=== PATIENT | male | born 1965 | race Caucasian/White ===

== ENCOUNTER 2018-02-24 07:07 | Emergency (ER) | payer SELFPAY ==
[~2018-02-24] VITALS: Ht 177.8 cm; Wt 100.0 kg
[2018-02-24 07:09] VITALS: BP 170/98; PULSE 128; RESP 22; TEMP 98; O2SAT 100
[2018-02-24] MEDS ORDERED: SODIUM CHLORIDE 0.9% FLUSH 10 ML FLUSH IVF PRN (07:15)
[2018-02-24 07:19] VITALS: BP_SYST 156; BP_SYST 170; BP_DIAS 93; BP_DIAS 98; O2SAT 100
[2018-02-24 07:21] VITALS: BP 156/93; PULSE 143; RESP 15; O2SAT 100
--- NOTE | 2018-02-24 07:25 | PD ---
HPI Chief Complaint: Cardiac Complaint Time Seen by Provider: 07:13 Travel History International Travel<30 days: No Contact w/Intl Traveler<30days: No Traveled to known affect area: No History of Present Illness HPI 52-year-old male states this morning he woke up feeling palpitations. He states he has never had A. fib before but he has had intermittent episodes of these palpitations. He states since he was here he had a Holter monitor that did not show any abnormal rhythm. He states he took 1 of his 's anxiety pills but it did not help. He denies any pain, fever, shortness of breath or any other concurrent complaints at this time. Quality is palpitations. Severity here is in the 150s. He denies specific modifying factors other than feels worse when he moves around. PFSH Past Medical History Medical History: Denies Significant Hx Tetanus Vaccination: > 5 Years Influenza Vaccination: No Past Surgical History Surgical History: No Previous Surgery Social History Alcohol Use: No Tobacco Use: No Substance Use: No Allergies-Medications (Allergen,Severity, Reaction): Coded Allergies: No Known Allergies (Verified Allergy, Unknown, 02/24/18) Reported Meds & Prescriptions Reported Meds & Active Scripts Active Cardizem (Diltiazem HCl) 60 Mg Tab 60 Mg PO QID 14 Days Review of Systems Except as stated in HPI: all other systems reviewed are Neg Physical Exam Narrative GENERAL: 52-year-old male in no apparent distress, anxious SKIN: Focused skin assessment warm/dry. HEAD: Atraumatic. Normocephalic. EYES: Pupils equal and round. No scleral icterus. No injection or drainage. ENT: No nasal bleeding or discharge. Mucous membranes pink and moist. NECK: Trachea midline. No JVD. CARDIOVASCULAR: irregular rate and rhythm. No murmur appreciated. RESPIRATORY: No accessory muscle use. Clear to auscultation. Breath sounds equal bilaterally. GASTROINTESTINAL: Abdomen soft, non-tender, nondistended. Hepatic and splenic margins not palpable. MUSCULOSKELETAL: No obvious deformities. No clubbing. No cyanosis. NEUROLOGICAL: Awake and alert. No obvious cranial nerve deficits. Motor grossly within normal limits. Normal speech. Data Data Last Documented VS Vital Signs Date Time Temp Pulse Resp B/P (MAP) Pulse Ox O2 Delivery O2 Flow Rate FiO2 02/24/18 09:30 124 16 155/74 (101) 97 02/24/18 07:21 Room Air 02/24/18 07:09 98.0 Orders Orders Electrocardiogram (02/24/18 07:13) B-Type Natriuretic Peptide (02/24/18 07:13) Ckmb (Isoenzyme) Profile (02/24/18 07:13) Complete Blood Count With Diff (02/24/18 07:13) Comprehensive Metabolic Panel (02/24/18 07:13) Magnesium (Mg) (02/24/18 07:13) Prothrombin Time / Inr (Pt) (02/24/18 07:13) Act Partial Throm Time (Ptt) (02/24/18 07:13) Troponin I (02/24/18 07:13) Chest, Single Ap (02/24/18 07:13) Ecg Monitoring (02/24/18 07:13) Bilateral Bp Monitoring (02/24/18 07:13) Iv Access Insert/Monitor (02/24/18 07:13) Oximetry (02/24/18 07:13) Sodium Chloride 0.9% Flush (Ns Flush) (02/24/18 07:15) Esmolol Drip Inj Premix (Brevibloc Drip (02/24/18 07:30) CKMB (02/24/18 07:20) CKMB% (02/24/18 07:20) Aspirin (Aspirin) (02/24/18 08:30) Diltiazem (Cardizem) (02/24/18 09:15) Labs Laboratory Tests Test 02/24/18 07:20 White Blood Count 10.8 TH/MM3 Red Blood Count 5.19 MIL/MM3 Hemoglobin 15.9 GM/DL Hematocrit 44.9 % Mean Corpuscular Volume 86.5 FL Mean Corpuscular Hemoglobin 30.6 PG Mean Corpuscular Hemoglobin Concent 35.3 % Red Cell Distribution Width 12.9 % Platelet Count 257 TH/MM3 Mean Platelet Volume 9.9 FL Neutrophils (%) (Auto) 38.2 % Lymphocytes (%) (Auto) 45.3 % Monocytes (%) (Auto) 12.9 % Eosinophils (%) (Auto) 2.7 % Basophils (%) (Auto) 0.9 % Neutrophils # (Auto) 4.1 TH/MM3 Lymphocytes # (Auto) 4.9 TH/MM3 Monocytes # (Auto) 1.4 TH/MM3 Eosinophils # (Auto) 0.3 TH/MM3 Basophils # (Auto) 0.1 TH/MM3 CBC Comment DIFF FINAL Differential Comment Prothrombin Time 9.7 SEC Prothromb Time International Ratio 1.0 RATIO Activated Partial Thromboplast Time 26.7 SEC Blood Urea Nitrogen 20 MG/DL Creatinine 1.21 MG/DL Random Glucose 118 MG/DL Total Protein 8.0 GM/DL Albumin 4.0 GM/DL Calcium Level 8.5 MG/DL Magnesium Level 2.3 MG/DL Alkaline Phosphatase 108 U/L Aspartate Amino Transf (AST/SGOT) 36 U/L Alanine Aminotransferase (ALT/SGPT) 35 U/L Total Bilirubin 0.4 MG/DL Sodium Level 140 MEQ/L Potassium Level 3.4 MEQ/L Chloride Level 105 MEQ/L Carbon Dioxide Level 23.7 MEQ/L Anion Gap 11 MEQ/L Estimat Glomerular Filtration Rate 63 ML/MIN Total Creatine Kinase 175 U/L Creatine Kinase MB 1.5 NG/ML Troponin I LESS THAN 0.02 NG/ML B-Type Natriuretic Peptide 5 PG/ML MDM Medical Decision Making Medical Screen Exam Complete: Yes Emergency Medical Condition: Yes Medical Record Reviewed: Yes (Past history confirmed, prior EKG reading reviewed without image for comparison) Interpretation(s) CBC & BMP Diagram 02/24/18 07:20 Total Protein 8.0, Albumin 4.0, Calcium Level 8.5, Magnesium Level 2.3, Alkaline Phosphatase 108, Aspartate Amino Transf (AST/SGOT) 36, Alanine Aminotransferase (ALT/SGPT) 35, Total Bilirubin 0.4 Last 24 hours Impressions Chest X-Ray 02/24/18 0713 Signed Impressions: Service Date/Time: Saturday, February 24, 2018 07:30 - CONCLUSION: No acute cardiopulmonary abnormality is identified. Joshua Funes MD Differential Diagnosis A. fib, SVT, a flutter, electrolyte abnormality, cardiac Narrative Course We will check blood work, chest x-ray, EKG and place on esmolol drip and monitor. Patient does have inferior lateral ST depression which is concerning for rate related cardiac change and this will need to be monitored closely. He currently has no chest pain. Esmolol was titrated up and heart rate was starting to get controlled. Patient states he cannot stay for additional workup and has to leave to take care of his ill mother. Will discuss with cardiology Multiple discussions with patient and he did not change his mind. He understands he can return at any time. AMA: The risks of leaving against medical advice without further evaluation treatment were discussed with the patient. These risks include cardiac dysfunction, cardiac dysrhythmia, possible heart attack, possible stroke or . The patient indicated understanding of these risks and appeared to have the capacity to make this decision. Physician Communication Physician Communication dr singh recommends cardizzem 60 mg qid and baby aspirin if leaving [facility] and can help if decides to stay Diagnosis Primary Impression: Atrial fibrillation with RVR Patient Instructions: General Instructions Additional Instructions: return as needed, set up a primary and route sales associate for close follow up, hold cardizem if heart rate is 60 0r less, take an over the counter baby aspirin Med/Other Pt SpecificInfo: Prescription(s) given Scripts Diltiazem (Cardizem) 60 Mg Tab 60 MG PO QID for 14 Days, #120 TAB 0 Refills Prov: Jennifer Kirk MD 02/24/18 Disposition: 07 AGAINST MEDICAL ADVICE Condition: Fair Jennifer Kirk MD February 24, 2018 07:25
[2018-02-24] MEDS ORDERED: ESMOLOL DRIP INJ PREMIX 250 ML IV PRN (07:30)
[2018-02-24 07:33] LABS: AUTOMATED NEUTROPHIL # 4.1 TH/MM3 (1.8-7.7); BASOPHIL # 0.1 TH/MM3 (0-0.2); BASOPHIL % 0.9 % (0.0-2.0); EOSINOPHIL # 0.3 TH/MM3 (0-0.4); EOSINOPHIL % 2.7 % (0.0-4.0); HEMATOCRIT 44.9 % (39.0-51.0); HEMOGLOBIN 15.9 GM/DL (13.0-17.0); LYMPH % 45.3 % (9.0-44.0); LYMPHOCYTE # 4.9 TH/MM3 (1.0-4.8); MEAN CELL VOLUME 86.5 FL (80.0-100.0); MEAN CORPUSCULAR HEMOGLOBIN 30.6 PG (27.0-34.0); MEAN CORPUSCULAR HGB CONC 35.3 % (32.0-36.0); MEAN PLATELET VOLUME 9.9 FL (7.0-11.0); MONO % 12.9 % (0.0-8.0); MONOCYTE # 1.4 TH/MM3 (0-0.9); NEUT % 38.2 % (16.0-70.0); PLATELET COUNT 257 TH/MM3 (150-450); RED BLOOD COUNT 5.19 MIL/MM3 (4.50-5.90); RED CELL DISTRIBUTION WIDTH 12.9 % (11.6-17.2); WHITE BLOOD COUNT 10.8 TH/MM3 (4.0-11.0)
[2018-02-24 07:44] LABS: PROTHROMBIN TIME - PATIENT 9.7 SEC (9.8-11.6)
--- NOTE | 2018-02-24 07:44 | RADRPT ---
EXAM DATE/TIME: 02/24/2018 07:30 [facility] COMPARISON: No previous studies available for comparison. INDICATIONS : Heart Palpitations MEDICAL HISTORY : Atrial Fib SURGICAL HISTORY : None. ENCOUNTER: Initial ACUITY: 1 day PAIN SCORE: 0/10 LOCATION: chest FINDINGS: Portable AP view of the chest demonstrates a normal-sized cardiac silhouette. No effusion, consolidat ion, or pneumothorax is visualized. The bones and soft tissues demonstrate no acute abnormality. Lung s are underinflated with mild atelectasis at the lung bases. EKG lines overlie the patient. CONCLUSION: No acute cardiopulmonary abnormality is identified. Joshua Funes MD on February 24, 2018 at 7:41 Board Certified Radiologist. This report was verified electronically.
[2018-02-24 07:57] LABS: ALT (GPT) 35 U/L (12-78); AST (GOT) 36 U/L (15-37); BICARBONATE 23.7 MEQ/L (21.0-32.0); BLOOD UREA NITROGEN 20 MG/DL (7-18); CALCIUM 8.5 MG/DL (8.5-10.1); CHLORIDE 105 MEQ/L (98-107); CREATININE 1.21 MG/DL (0.60-1.30); GLOMERULAR FILTRATION RATE 63 ML/MIN (>89); GLUCOSE,RANDOM 118 MG/DL (74-106); MAGNESIUM 2.3 MG/DL (1.5-2.5); SODIUM (NA) 140 MEQ/L (136-145)
[2018-02-24 08:13] LABS: ALKALINE PHOSPHATASE 108 U/L (45-117); TOTAL BILIRUBIN ADULT 0.4 MG/DL (0.2-1.0); TROPONIN I LESS THAN 0.02 NG/ML (0.02-0.05)
[2018-02-24] MEDS ORDERED: ASPIRIN 325 MG TAB PO ONE (08:30)
[2018-02-24 08:51] VITALS: PULSE 120
[2018-02-24] MEDS ORDERED: DILTIAZEM HCL 60 MG TAB PO ONE (09:15)
[2018-02-24] MEDS ORDERED: DILT60TA33 PO (09:25)
[2018-02-24 09:30] VITALS: BP 155/74
--- NOTE | 2018-02-25 13:42 | EKG ---
Date Performed: 02/24/2018 Time Performed: 07:16:04 PTAGE: 52 years EKG: ATRIAL FIBRILLATION WITH RAPID VENTRICULAR RESPONSE INCOMPLETE RIGHT BUNDLE BRANCH BLOCK MO DERATE ST DEPRESSION ABNORMAL ECG PREVIOUS TRACING : 01/23/2006 23.03 Since prior tracing, atrial fibrillation with rapid ventric ular response has replaced Sinus rhythm . DOCTOR: Raj Pinzon Interpretating Date/Time 02/25/2018 13:41:22
== END 2018-02-24 09:30 | disposition left against medical advice (07) ==
LOC: NEPE 07:07
DX: I48.91 Unspecified atrial fibrillation (principal); I45.10 Unspecified right bundle-branch block; R94.31 Abnormal electrocardiogram [ECG] [EKG]
CPT/HCPCS: 71045; 80053; 82550; 82552; 83735; 83880; 84484; 85025; 85610; 85730; 93005; 96365; 96366